=== PATIENT | male | born 1960 | race Caucasian/White ===

== ENCOUNTER 2018-12-16 11:21 | Emergency (ER) | payer OTHER ==
[~2018-12-16] VITALS: Ht 165.1 cm; Wt 77.1 kg
[2018-12-16] MEDS ORDERED: LIPITOR 20 MG T20 M1 PO (11:44)
[2018-12-16] MEDS ORDERED: OMEPRAZOLE 20 M20 M1 PO (11:44)
[2018-12-16] MEDS ORDERED: ZYPREXA5 MG PO (11:44)
[2018-12-16] MEDS ORDERED: ONDANSETRON HCL4 M2 PO (11:45)
[2018-12-16 12:10] LABS: ABSOLUTE NEUTROPHILS 11.2 thou/uL (1.4-8.2); BASOPHILS 0.4 % (0.0-2.0); EOSINOPHILS 2.4 % (0.0-3.0); HEMATOCRIT 35.1 % (42.0-52.0); HEMOGLOBIN 12.1 gm/dL (14.0-18.0); LYMPHOCYTES 7.2 % (24.0-44.0); MCHC 34.5 g/dL (28.0-37.0); MCV 89.9 fL (80.0-100.0); MONOCYTES 2.1 % (1.0-8.0); PLATELET COUNT 394 thou/uL (150-400); POLYS 87.9 % (36.0-66.0); RDW 13.1 % (10.5-14.5); WBC 12.8 thou/uL (4.0-11.0)
[2018-12-16 12:17] LABS: ANION GAP 11 mmol/L (7-16); BUN 20 mg/dL (7-18); CALCIUM 9.6 mg/dL (8.5-10.1); CHLORIDE 97 mmol/L (98-107); CO2 26 mmol/L (21-32); CREATININE 0.9 mg/dL (0.7-1.3); GLUCOSE 96 mg/dL (74-106); POTASSIUM 3.7 mmol/L (3.5-5.1); SODIUM 134 mmol/L (136-145)
[2018-12-16 12:28] LABS: ALBUMIN 2.5 g/dL (3.4-5.0); DIRECT BILIRUBIN 0.2 mg/dL (<0.1-0.3); LIPASE 45 U/L (73-393); SGOT 12 U/L (15-37); SGPT 22 U/L (30-65); TOTAL PROTEIN 7.8 g/dL (6.4-8.2); TROPONIN-I <0.06 ng/mL (<0.06)
[2018-12-16 16:19] VITALS: BP 120/43
--- NOTE | 2018-12-17 09:48 | EKG ---
[address] [place] [address] ELECTROCARDIOGRAM REPORT Name: THOMAS DANG Room #: [facility]ITAL[facility] [id number] ������������������ Admission: 12/16/18 ������������������ Attend Phys: Discharge: 12/16/18 ������������������ Date of : 64 Report #: [id number] ����������������������������������������������������������������� [id number] THIS REPORT FOR: //name// [facility] ED Test Date: 2018-12-16 Test Time: 11:46:41 Pat Name: THOMAS DANG Department: Room: Gender: Skelp Processor: Aisha Mendoza : 1960 Requested By: El Merrill Order Number: [id number] MD: Yvon Ma Measurements Intervals [place] Rate: 143 P: -5 UT: 122 QRS: 58 QRSD: 90 T: -24 QT: 286 QTc: 441 Interpretive Statements Sinus tachycardia Atrial premature complex No previous ECG available for comparison Electronically Signed On 12-17-2018 9:48:17 CDT by Yvon Ma [email or web address] ��������������������������������������������� <ELECTRONICALLY SIGNED> ���������������������������������������� By: Yvon Ma MD, [facility] ��������������������������������������������� 12/17/18 0948 [id number] [id number] Yvon Ma MD, FACC /EPI
== END 2018-12-16 16:20 | disposition home or self-care (01) ==
LOC: ER 11:21
PROVIDERS: Emergency Medicine
DX: E83.42 Hypomagnesemia (principal); R11.2 Nausea with vomiting, unspecified; R00.0 Tachycardia, unspecified; E78.5 Hyperlipidemia, unspecified; Z85.118 Personal history of other malignant neoplasm of bronchus and lung